=== PATIENT | female | born 1970 | race African-American/Black ===

== ENCOUNTER 2018-01-12 20:43 | Emergency (ER) | payer SELFPAY ==
--- NOTE | 2018-01-12 21:32 | ED HEADACHE COMPLAINT ---
History of Present Illness General Chief Complaint: General Adult Stated Complaint: PT HAS HEADACHE AND HYPERTENTION Source: patient, family Exam Limitations: no limitations Vital Signs & Intake/Output Vital Signs & Intake/Output Vital Signs Date Time Temp Pulse Resp B/P B/P Pulse O2 O2 Flow FiO2 Mean Ox Delivery Rate 01/12 2250 70 166/103 01/12 2213 68 16 166/103 98 Room Air 01/12 2209 98 Room Air 01/124 96.9 72 18 178/111 01/12 2150 72 18 178/111 97 Room Air 01/12 2049 96.9 73 18 192/120 98 Room Air Allergies Coded Allergies: No Known Allergies (01/12/18) Reconcile Medications Labetalol HCl 100 MG TABLET 1 TAB PO BID HTN Potassium Chloride 20 MEQ TAB.ER.PRT 1 TAB PO DAILY hypokalemia Triage Note: PER [place] BEEN IN [place] 3 [place] PT HX OF HTN AND DID NOT BRING MEDS WHEN MOVING HAS HAD CARDENAS 3-4 TIMES X WEEK SINCE ARRIVAL TODAY CARDENAS ALL DAY TOOK ES TYLENOL THIS AM WITH SOME EFFECT PAIN NOW 03/18 Triage Nurses Notes Reviewed? yes Onset: Last week Duration: week(s):, continues in ED, intermittent Timing: recent history Quality/Severity: moderate, severe, throbbing Head Injury Location: frontal, temporal Modifying Factors: Improves With: medication. Associated Symptoms: vision changes LMP (ages 10-50): post menopausal : No Patient currently breastfeeds: No HPI: 2 weeks prior to admission patient has had high blood pressure with episodic headaches described as throbbing frontal temporal associated with blurred vision. Her son is providing lisinopril 25 mg daily and when necessary Tylenol with little effect. She denies fever chills nausea vomiting diarrhea abdominal pain chest pain shortness of breath dysuria rash bleeding change in motor function change in bowel bladder habit. Past History Travel History Traveled to [place] past 21 day No Medical History Any Pertinent Medical History? see below for history Neurological: NONE EENT: NONE Cardiovascular: hypertension, LOW POTASSIUM Respiratory: NONE Gastrointestinal: NONE Hepatic: NONE Renal: NONE Musculoskeletal: NONE Psychiatric: NONE Endocrine: NONE Surgical History Surgical History: non-contributory Psychosocial History What is your primary language Czech Tobacco Use: Current Daily Use Daily Tobacco Use Amount/Type: => 5 Cigarettes daily Family History Hx Contributory? No Review of Systems Review of Systems Constitutional: Reports: no symptoms. Eyes: Reports: see HPI, blurred vision. Ears, Nose, Throat, Mouth: Reports: no symptoms. Respiratory: Reports: no symptoms. Cardiovascular: Reports: no symptoms. Gastrointestinal/Abdominal: Reports: no symptoms. Genitourinary: Reports: no symptoms. Musculoskeletal: Reports: no symptoms. Skin: Reports: no symptoms. Neurological/Psychological: Reports: see HPI, headache. Hematologic/Endocrine: Reports: no symptoms. Endocrine: Reports: no symptoms. Immunologic/Allergic: Reports: no symptoms. All Other Systems: Reviewed and Negative Physical Exam Physical Exam General Appearance: well developed/nourished, alert, awake, moderate distress, obese Head: atraumatic, normal appearance Eyes: Bilateral: normal appearance, PERRL, EOMI. Ears, Nose, Throat: normal pharynx, normal ENT inspection, hearing grossly normal Neck: normal inspection, supple, full range of motion, trachea midline, limited range of motion, no midline tenderness Respiratory: normal breath sounds, chest non-tender, no respiratory distress, quiet respiration, lungs clear Cardiovascular: regular rate/rhythm, normal peripheral pulses, norml femoral pulses equa Gastrointestinal: normal bowel sounds, soft, non-tender, no organomegaly Back: normal inspection, normal range of motion, no vertebral tenderness Extremities: normal inspection, normal capillary refill, normal range of motion, no edema Psychiatric: awake, alert, oriented x 3 Cranial Nerves: normal hearing, normal speech, PERRL Coordination/Gait: normal finger to nose, normal gait Motor/Sensory: no motor/sensory deficits Reflexes: 2+: bicep (R), bicep (L). Skin: intact, normal color Lymphatic: no anterior cervical cheri Core Measures Sepsis Present: No Sepsis Focused Exam Completed? No Progress Differential Diagnosis: cluster CARDENAS, intracranial Hem., subarach. Hem., tension CARDENAS Plan of Care: Orders Procedure Date/time Status TSH REFLEX 01/12 2114 Complete TROPONIN LEVEL 01/12 2114 Complete MAGNESIUM 01/12 2114 Complete COMPREHENSIVE METABOLIC PANEL 01/12 2114 Complete CBC WITHOUT DIFFERENTIAL 01/12 2114 Complete EKG 01/12 2114 Active Laboratory Tests 01/12/180: Anion Gap 11, Estimated GFR 49 L, BUN/Creatinine Ratio 19.2, Glucose 113 H, Calcium 9.4, Magnesium 2.1, Total Bilirubin 0.3, AST 25, ALT 20, Alkaline Phosphatase 71, Troponin I < 0.01, Total Protein 7.1, Albumin 3.7, Globulin 3.4, Albumin/Globulin Ratio 1.1, TSH &T3 &Free T4 Intrp 2.230, CBC w Diff NO MAN DIFF REQ, RBC 4.10 L, MCV 91.1, MCH 30.9, MCHC 34.0, RDW 15.8 H, MPV 10.1, Gran % 45.5, Lymphocytes % 39.5, Monocytes % 5.9, Eosinophils % 8.6 H, Basophils % 0.5 , Absolute Granulocytes 3.3, Absolute Lymphocytes 2.9, Absolute Monocytes 0.4, Absolute Eosinophils 0.6, Absolute Basophils 0 Diagnostic Imaging: Viewed by Me: CT Scan. Discussed w/RAD: CT Scan. Radiology Impression: No acute intracranial pathology. Initial ED EKG: normal axis, normal intervals, normal p-waves, normal QRS complex, normal sinus rhythm, no ST T wave changes Rhythm Strip: normal sinus rhythm Departure Departure Time of Disposition: 2307 Disposition: HOME OR SELF CARE Condition: Stable Clinical Impression Primary Impression: Hypertension Secondary Impressions: Headache, Hypokalemia Referrals: Zacarias ALEGRIA,Matthew Friedman Departure Forms: Customer Survey General Discharge Information Prescriptions: Current Visit Scripts Labetalol HCl 1 TAB PO BID #60 TAB Potassium Chloride 1 TAB PO DAILY #30 TAB Critical Care Note Critical Care Note Critical Care Time: 30-74 min (35)
--- NOTE | 2018-01-12 21:44 | CT SCAN REPORT ---
EXAMINATION: CT HEAD WITHOUT CONTRAST CLINICAL INFORMATION: 47-year-old woman with headache and blurred vision. COMPARISON: None TECHNIQUE: Contiguous axial imaging was performed from the skull base to vertex without intravenous administration of contrast. DLP: 613 mGy-cm FINDINGS: There is no evidence of acute intracranial hemorrhage or territorial infarction. No abnormal mass effect or midline shift is seen. Ragland to white matter differentiation is well preserved. No extra-axial fluid collections are identified. The ventricles are normal in size. There is no abnormal attenuation within the brain parenchyma. The osseous structures and soft tissues are normal. The mastoid air cells and visualized portions of the paranasal sinuses are well aerated. IMPRESSION: No acute intracranial pathology.
[2018-01-12 21:52] LABS: ABSOLUTE BASOPHIL COUNT 0 /CUMM (0.0-0.2); ABSOLUTE EOSINOPHIL COUNT 0.6 /CUMM (0.0-0.7); ABSOLUTE GRANULOCYTE CT 3.3 /CUMM (1.4-6.5); ABSOLUTE LYMPH COUNT 2.9 /CUMM (1.2-3.4); ABSOLUTE MONOCYTE COUNT 0.4 /CUMM (0.10-0.60); BASOPHIL % 0.5 % (0.0-2.0); EOSINOPHIL % 8.6 % (0-5); GRANULOCYTE % 45.5 % (42.2-75.2); HEMATOCRIT 37.3 % (37-47); MEAN CORPUSCULAR HGB 30.9 PG (27.0-31.0); MEAN CORPUSCULAR VOLUME 91.1 FL (81.0-99.0); MEAN PLATELET VOLUME 10.1 FL (7.4-10.4); PLATELET COUNT 258 /CUMM (130-400); RBC DISTRIBUTION WIDTH 15.8 % (11.5-14.5); WHITE BLOOD CELL COUNT 7.3 /CUMM (4.8-10.8)
[2018-01-12] MEDS ORDERED: POTASSIUM CHLO20 ME2 PO (23:10)
[2018-01-12] MEDS ORDERED: LABETALOL HCL100 M1 PO (23:10)
[2018-01-12 23:19] VITALS: BP 167/109
== END 2018-01-12 23:24 ==
LOC: ERH 20:43
PROVIDERS: Emergency Medicine
DX: I10 Essential (primary) hypertension (principal); E87.6 Hypokalemia
CPT/HCPCS: 93005; 93010; 96374; 96375; 99291; J0131